=== PATIENT | male | born 1960 | race Caucasian/White ===

== ENCOUNTER 2021-11-15 20:47 | Emergency (ER) | payer OTHER ==
[~2021-11-15] VITALS: Ht 175.3 cm; Wt 72.1 kg
[2021-11-15] MEDS ORDERED: SILVER NITRATE APPLICATOR 1 EA BOX ONE (20:59)
[2021-11-15 21:18] VITALS: BP 144/63
--- NOTE | 2021-11-15 21:32 | NUR ---
Patient discharged to home in stable condition. Written and verbal after care instructions given. Patient verbalizes understanding of instruction.
== END 2021-11-15 21:53 | disposition home or self-care (01) ==
LOC: ER 20:54
DX: R04.0 Epistaxis (principal)